=== PATIENT | male | born 1965 | race Hispanic/Latino ===

== ENCOUNTER 2023-07-01 19:01 | Emergency (ER) | payer OTHER ==
[~2023-07-01] VITALS: Ht 170.2 cm; Wt 101.6 kg
[2023-07-01 20:25] VITALS: BP 132/74; PULSE 82; RESP 18; O2SAT 98
== END 2023-07-01 20:36 | disposition home or self-care (01) ==
LOC: EDH 19:01
DX: N40.1 Benign prostatic hyperplasia with lower urinary tract symptoms (principal); R33.9 Retention of urine, unspecified; I10 Essential (primary) hypertension
CPT/HCPCS: 51702

== ENCOUNTER → 2023-07-10 | Outpatient (CLI) | payer OTHER, SELFPAY ==
[~2023-07-10] VITALS: Ht 170.2 cm; Wt 99.2 kg
[~2023-07-10] MED LIST: ACET-2079 PO; ALBU18HF7 IH; AMLO-257 PO; AMOX1TAB16 PO; CHOL1CRY2 MC; CHOL200074 PO; CYAN100099 PO; CYAN5POW MC; LEVO750T39 PO; LIDOCAINE PATCH TD; LOSA25TA41 PO; PHEN-846 PO; TAMS-1 PO
[2023-07-10 12:09] LABS: BASOPHILS # (AUTO) 0.05 K/uL (0.00-0.20); BASOPHILS % (AUTO) 0.5 % (0.0-5.0); EOSINOPHILS # (AUTO) 0.03 K/uL (0.00-0.70); EOSINOPHILS % (AUTO) 0.3 % (0.0-8.0); HEMATOCRIT 43.8 % (42-54); IMMATURE GRANULOCYTE ABSOLUTE 0.05 K/uL (0-1); LYMPHOCYTES % (AUTO) 10.2 % (21.0-51.0); MEAN CORPUSCULAR HEMOGLOBIN 29.8 pg (27.0-33.0); MEAN CORPUSCULAR HGB CONC 33.6 g/dL (32.0-36.0); MEAN CORPUSCULAR VOLUME 88.8 fL (79-99); MONOCYTES # (AUTO) 1.3 K/uL (0.1-1.0); MONOCYTES % (AUTO) 13.2 % (3.0-13.0); NEUTROPHILS # (AUTO) 7.6 K/uL (1.8-7.7); NEUTROPHILS % (AUTO) 75.3 % (40.0-77.0); PLATELET COUNT (AUTO) 339 K/uL (130-400); RED BLOOD CELL COUNT(AUTO) 4.93 MIL/uL (4.50-6.20); RED CELL DISTRIBUTION WIDTH 12.8 % (11.0-15.5); WHITE BLOOD COUNT (AUTO) 10.1 K/uL (4.8-10.8)
[2023-07-10 12:53] VITALS: BP 141/83; PULSE 130; RESP 17
== END | disposition home or self-care (01) ==
LOC: DAH 10:00 → EDSTATUS 07-12 09:55
PROVIDERS: ATTEND Urology
DX: Z01.810 Encounter for preprocedural cardiovascular examination (principal); N40.1 Benign prostatic hyperplasia with lower urinary tract symptoms; R33.8 Other retention of urine; I10 Essential (primary) hypertension; G47.30 Sleep apnea, unspecified; R00.0 Tachycardia, unspecified
CPT/HCPCS: 93005; 85025; 36415; A6260

== ENCOUNTER 2023-08-09 08:24 | Day surgery (SDC) | payer SELFPAY ==
[2023-08-07 12:15] VITALS: BP 154/72; PULSE 81; RESP 16
[2023-08-09] VITALS (21 sets, daily range): BP systolic 108–156; BP diastolic 50–91; PULSE 78–96; RESP 10–18
[~2023-08-09] VITALS: Ht 170.2 cm; Wt 100.1 kg
[~2023-08-09 08:24] MED LIST changes: -ACET-2079 PO; -AMOX1TAB16 PO; -CHOL1CRY2 MC; -CYAN5POW MC; -LEVO750T39 PO; -PHEN-846 PO
[2023-08-09] MEDS: CEFTRIAXONE 1G VIAL ONE (10:09)
[2023-08-09] MEDS: LACTATED RINGERS 1000ML 1,000 ML IV ONE (10:10)
[2023-08-09] MEDS ORDERED: PROPOFOL 10 MG/ML 20ML VIAL IV ONE (11:49)
[2023-08-09] MEDS ORDERED: MIDAZOLAM HCL 1 MG/ML 2ML VIAL ONE (11:49)
[2023-08-09] MEDS ORDERED: LIDOCAINE PF 100MG/5ML (2%) SYRINGE 5ML ONE (11:49)
[2023-08-09] MEDS ORDERED: FENTANYL CITRATE PF 50 MCG/1 ML 2ML VIAL ONE ×2 (11:50→13:18)
[2023-08-09] MEDS ORDERED: ONDANSETRON 4MG INJ ONE (12:39)
[2023-08-09] MEDS ORDERED: DEXAMETHASONE SOD PHOSPHATE 10MG/ML 1ML VIAL ONE (12:39)
[2023-08-09] MEDS ORDERED: GENTAMICIN 80 MG/NS 100 ML PB 100 ML IV ONE (13:06)
[2023-08-09] MEDS: MORPHINE 2 MG SYG ONE (15:11)
[2023-08-09] MEDS ORDERED: AMOX1TAB16 PO (15:24)
[2023-08-09] MEDS ORDERED: ACET-2079 PO (15:30)
[2023-08-09] MEDS ORDERED: PHEN-846 PO (15:31)
[2023-08-09] MEDS: PHENAZOPYRIDINE HCL 200 MG TABLET PO ONE (19:58)
== END 2023-08-09 16:30 | disposition home or self-care (01) ==
LOC: DAH 08:24
PROVIDERS: ATTEND Urology
DX: N40.1 Benign prostatic hyperplasia with lower urinary tract symptoms (principal); R33.8 Other retention of urine; G47.30 Sleep apnea, unspecified; I10 Essential (primary) hypertension; Z90.89 Acquired absence of other organs; Z98.890 Other specified postprocedural states; Z79.01 Long term (current) use of anticoagulants; Z79.899 Other long term (current) drug therapy
CPT/HCPCS: 52648; 88305; A6260; A4663; J7120 ×2; A4354; A4340; J3010 ×2; J1100; J2270; J2001; J0696; J2250; J2704; J2405; J1580; A4358; A4215; A4223; A4222; A4221; A4600; A4510; J3490